=== PATIENT | female | born 1935 | race Caucasian/White ===

== ENCOUNTER 2016-04-26 18:26 | Inpatient (IN) | payer MEDICARE, OTHER ==
[~2016-04-26] VITALS: Ht 172.7 cm; Wt 106.1 kg
[~2016-04-26 18:26] MED LIST: ARICEPT10 MG PO; ELIQUIS5 MG PO; HUMULIN R100 U/ML SC; LANTUS INSULIN10 ML SC; LEVOTHYROXINE125 MCG PO; LEXAPRO10 MG PO; LOTREL 10/20 CA1 CAP PO; MULTAQ400 MG PO; PRILOSEC20 MG PO; PROAIR HFA8.5 GM INH; RESTORIL15 MG PO; SEROQUEL25 MG PO; VITAMIN B-121000 MCG PO; VITAMIN D5000 UNIT PO
[2016-04-26 19:54] LABS: BASOPHILS 0.2 % (0.0-2.0); EOSINOPHILS 4.5 % (0-7); HEMATOCRIT 38.2 % (36.0-48.0); HEMOGLOBIN 11.7 g/dL (12-16); IMMATURE GRANULOCYTES 0.2 % (0-5); LYMPHOCYTES 26.7 % (15-50); MCH 21.1 pg (26.0-34.0); MCHC 30.6 g/dL (31.0-37.0); MCV 68.8 fL (80.0-100.0); MONOCYTES 10.5 % (2-11); NEUTROPHILS 57.9 % (40-80); PLATELET COUNT 270 10x3/uL (130-400); RBC 5.55 10x6/uL (4.00-5.40); WBC 8.2 10x3/uL (4.8-10.8)
[2016-04-26 20:07] LABS: ALBUMIN 3.5 g/dL (3.4-5.0); ANION GAP 11.5 mmol/L (8-16); BILIRUBIN - TOTAL 0.55 mg/dL (0.2-1.3); CALCIUM 9.5 mg/dL (8.5-10.1); CARBON DIOXIDE 28.3 mmol/L (21.0-32.0); CREATININE - SERUM 1.2 mg/dL (0.6-1.3); POTASSIUM - SERUM 4.8 mmol/L (3.5-5.1); PROTEIN - SERUM 7.2 g/dL (6.4-8.2)
[2016-04-26 20:17] LABS: APPEARANCE HAZY (CLEAR); BILIRUBIN NEGATIVE (NEGATIVE); COLOR YELLOW (YELLOW); GLUCOSE NEGATIVE (NEGATIVE); KETONE NEGATIVE (NEGATIVE); LEUKOCYTE ESTERASE NEGATIVE (NEGATIVE); NITRITE NEGATIVE (NEGATIVE); PROTEIN NEGATIVE (NEGATIVE); UROBILINOGEN NORMAL (NORMAL)
[2016-04-26 20:18] LABS: BACTERIA FEW /hpf (NONE SEEN); RED CELLS - URINE NONE SEEN /hpf (0-5); WHITE CELLS - URINE NSEEN /hpf (0-5)
--- NOTE | 2016-04-27 01:45 | NUR ---
RECEIVED PT TO FLOOR FROM ER VIA STRETCHER. PT DENIES PAIN AT THIS TIME. PT ATE SOME PEANUT BUTTER AND CRACKERS. C/O PAIN AFTER AN HOUR ON FLOOR RATING OF 8/10 ON PAIN SCALE. GAVE MORPHINE 4MG IV PUSH. NO OTHER NEEDS. HOME MEDS AND HISTORY REVIEWED. DAUGHTER WENT HOME AND WILL BE BACK EARLY THIS AM. WILL CONTINUE TO MONITOR.
[2016-04-27] MEDS ORDERED: ZANTAC150 MG PO (01:48)
[2016-04-27] MEDS ORDERED: MACROBID100 MG PO (01:48)
[2016-04-27] MEDS ORDERED: ZOLOFT25 MG PO (01:49)
[2016-04-27] MEDS ORDERED: ATIVAN1 MG PO (01:53)
[2016-04-27] MEDS ORDERED: LEVOTHYROXINE175 MCG PO (01:54)
--- NOTE | 2016-04-27 02:00 | NUR ---
RESTING WITH EYES CLOSED, RESP WITH EASE, NO DISTRESS NOTED, FALL PRECAUTIONS IN PLACE, CL IN REACH
[2016-04-27] MEDS ORDERED: MELATONIN 10 M1 EACH PO (02:01)
[2016-04-27] MEDS ORDERED: NITROSTAT0.4 MG SL (02:02)
[2016-04-27 03:18] VITALS: BP 132/56; BMI 35.6
[2016-04-27 04:00] VITALS: BP 133/61
--- NOTE | 2016-04-27 07:29 | NUR ---
PT RESTING IN BED, DAUGHTER AT BEDSIDE. ALERT AND ORIENTED, BED LOWEST POSITION, CALL LIGHT IN REACH, WILL CONTINUE PLAN OF CARE
[2016-04-27 08:43] VITALS: BP 145/66
--- NOTE | 2016-04-27 09:40 | NUR ---
PT SEEN FOR RADAR TESTER NOTE. STATES NO RELIEF IF ANY FROM PAIN PILL GIVEN THIS AM. INSTRUCTED BOTH PATIENT AND DAUGHTER THAT CANNOT FOLLOW WITH IV PAIN MED FOR ANOTHER HOUR AT LEAST-PAIN PILL ON BOARD FOR APPROX. 45 MIN. CONSENT SIGNED FOR CORSET BRACE TO BE DELIVERED. INSTRUCTED PATIENT AND DAUGHTER THAT CONSULT IN FOR THERAPY WITH BRACE ON. BOTH VOICED UNDERSTANDING OF NEED TO WEAR BRACE FOR SUPPORT OF FRACTURE. LYING ON RIGHT SIDE. CALL LIGHT IN REACH
--- NOTE | 2016-04-27 11:37 | NUR ---
PT SLEEPING EASILY AROUSED, DAUGHTER AT BEDSIDE, BED LOWEST POSITION, CALL LIGHT IN REACH, WILL CONTINUE TO MONITOR
--- NOTE | 2016-04-27 12:21 | NUR ---
PT RESTING IN BED, NO COMPLAINTS AT THIS TIME, BED LOWEST POSITION, CALL LIGHT IN REACH, SIDE RAILS UP X2, WILL CONTINUE TO MONITOR
[2016-04-27 12:52] VITALS: Ht 172.7 cm; Wt 106.1 kg
[2016-04-27 12:54] VITALS: BP 123/60
--- NOTE | 2016-04-27 13:20 | NUR ---
PT COMPLAINS OF NAUSEA, ZOFRAN GIVEN PER MAR, WILL CONTINUE TO MONITOR
[2016-04-27 16:53] VITALS: BP 127/61
--- NOTE | 2016-04-27 19:34 | NUR ---
PT NOTED LYING IN BED SHAKING FROM A PAIN LEVEL OF 9 IN HER BACK AND RIBS. NUMEROUS PILLOWS USED TO TRY TO REPOSITION PT WITHOUT SUCCESS. DR GOVEA PAGED AT THIS TIME ABOUT POSSIBLE INCREASING PAIN MEDICATION.
--- NOTE | 2016-04-27 19:44 | NUR ---
RECIEVED CALL BACK FROM DR HERMAN. [facility] ORDERED.
--- NOTE | 2016-04-27 19:45 | NUR ---
PT VOICED COMPLAINT OF BACK PAIN LEVEL OF 10, NOT RELIEVED WITH NORCO. SHE AND THE FAMILY REQUESTED THE DR BE CALLED FOR A STRONGER MEDICATION. DR GOVEA PAGED THROUGH HIS ANSERING SERVICE. DR HERMAN RETURNED CALL AND NEW ORDER NOTED. PT MEDICATED DIRECTED.
--- NOTE | 2016-04-27 20:50 | NUR ---
PT STATES HER PAIN IS GONE FOR NOW, AND SHE FEELS MUCH BETTER. IV NOTED TO LEFT AC IS VERY POSITIONAL. PILLOW USED FOR POSITIONING TO KEEP ARM STRAIGHT.
[2016-04-27 21:00] VITALS: BP 101/39
--- NOTE | 2016-04-27 22:26 | NUR ---
PT IS RESTING QUIETLY IN BED WITH EYES CLOSED. RESPS ARE EVEN AND UNLABORED. NO ACUTE DISTRESS NOTED.
--- NOTE | 2016-04-27 23:59 | NUR ---
PT IS RESTING ON BED WITH EYES CLOSED.
[2016-04-28 02:15] VITALS: BP 131/53
--- NOTE | 2016-04-28 02:36 | NUR ---
PT RESTING IN BED WITH EYES CLOSED. NO DISTRESS NOTED.
[2016-04-28 04:00] VITALS: BP 141/54
--- NOTE | 2016-04-28 04:39 | NUR ---
PT IS RESTING QUIETLY IN BED WITH EYES CLOSED. NO ACUTE DISTRESS NOTED.
--- NOTE | 2016-04-28 07:10 | NUR ---
PATIENT IN BED WITH EYES CLOSED RESTING QUIETLY AT THIS TIME. NO SIGNS OF DISTRESS. CALL LIGHT WITHIN REACH.
--- NOTE | 2016-04-28 07:30 | NUR ---
PT RESTING IN BED ON RIGHT SIDE, NO COMPLAINTS AT THIS TIME, BED LOWEST POSITION, SIDE RAILS UP X2, CALL LIGHT IN REACH, ASSESSMENT COMPLETE, WILL CONTINUE TO MONITOR
[2016-04-28 08:46] VITALS: BP 128/42
[2016-04-28 11:53] VITALS: BP 136/61
[2016-04-28 16:25] VITALS: BP 106/40
[2016-04-28 20:00] VITALS: BP 156/59
[2016-04-29] VITALS: BP 154/73
--- NOTE | 2016-04-29 02:36 | NUR ---
RESTING WITH EYES CLOSED, NO DISTRESS NOTED, FALL PRECAUTIONS IN PLACE, CL IN REACH
[2016-04-29 06:26] LABS: ANION GAP 13.2 mmol/L (8-16); CALCIUM 9.1 mg/dL (8.5-10.1); CARBON DIOXIDE 24.1 mmol/L (21.0-32.0); CREATININE - SERUM 1.2 mg/dL (0.6-1.3); POTASSIUM - SERUM 4.3 mmol/L (3.5-5.1)
--- NOTE | 2016-04-29 07:25 | NUR ---
PT RESTING IN BED ON RIGHT SIDE, CAN EXPRESS NEEDS OR CONCERNS, ASSESSMENT COMPLETE, NO CURRENT NEEDS, CALL LIGHT IN REACH, WILL CONTINUE TO MONITOR
[2016-04-29 08:55] VITALS: BP 132/48
--- NOTE | 2016-04-29 09:00 | NUR ---
SCOPOLAMINE PATCH PLACED BEHIND LEFT EAR
--- NOTE | 2016-04-29 13:31 | NUR ---
PT UP SITTING IN CHAIR, SOME COMPLAINTS OF NAUSEA, CORSET BRACE ON, CALL LIGHT IN REACH, WILL CONTINUE TO MONITOR,
--- NOTE | 2016-04-29 14:41 | NUR ---
PT LYING IN BED RESTING, NO CURRENT COMPLAINTS, BED LOWEST POSITION, CALL LIGHT IN REACH, WILL CONTINUE TO MONITOR
--- NOTE | 2016-04-29 15:40 | NUR ---
LAYING QUIETLY ON RT SIDE DENIES ANY NEEDS AT PRESENT RESP EVEN AND UNLABORED AT PRESENT.
[2016-04-29 16:45] VITALS: BP 111/34
[2016-04-29 19:00] VITALS: BP 130/59
--- NOTE | 2016-04-29 19:19 | NUR ---
DR ALONZO ROUNDS. PATIENT REPORTS THAT NAUSEA IS IMPROVING, BUT STILL A PROBLEM AT TIMES. DR ALONZO TO ORDER SCOPALAMINE PATCH.
--- NOTE | 2016-04-29 19:59 | NUR ---
IN BED AWAKE AND ALERT. NO DISTRESS NOTED. CAN EXPRESS NEEDS AND WANTS. DENIES ANY PAIN OR DISCOMFORT AT THIS TIME. ASSESSMENT COMPLETED. C/L IN REACH AT BEDSIDE.
--- NOTE | 2016-04-30 02:00 | NUR ---
PT IN BED WITH NO DISTRESS. RESPIRATIONS EVEN AND UNLABORED. RIGHT AC IV WITH FLUIDS RUNNING PER ORDER. SIDE RAILS X 2. BED LOW. CALL LIGHT IN REACH.
[2016-04-30 04:00] VITALS: BP 132/43
--- NOTE | 2016-04-30 05:42 | HP ---
PATIENT: MELISSA COCHRAN MEDICAL RECORD: [id number] ACCOUNT: [id number] LOCATION:[id number] : 34 ADMISSION DATE: 04/26/16 HISTORY AND PHYSICAL EXAMINATION REASON FOR ADMISSION: Back pain or dyspepsia. HISTORY OF PRESENT ILLNESS: The patient is an 81-year-old female with history of Alzheimer dementia with behavior disturbances. She had fallen approximately a week ago, had some vague low back pain. She had been to my office and while later complaining more of belching and abdominal discomfort. Plain films were done at that time did not show acute abnormality. She did not have postprandial dyspepsia, was seen back in the office earlier this week and my concern was possible cholelithiasis. She was scheduled for an ultrasound of her gallbladder. Her pain became much worse last night and could not get out of bed and the daughter called 911, she was brought to the Emergency Room. Repeat CT of the abdomen and pelvis at that time did confirm the gallstones that also showed a small L1 compression fracture. She has now been admitted for the above symptomatology. She denies any sciatica currently. Definitely has postprandial fatty food intolerance. PAST MEDICAL HISTORY: 1. Essential hypertension. 2. Alzheimer dementia with behavior disorder. 3. Hypothyroidism. 4. Type 2 diabetes mellitus. 5. History of CAD, refusing surgery in the past. 6. Macular degeneration, bilateral eyes, right greater than left. 7. Degenerative joint disease. 8. Chronic renal insufficiency. 9. Recurrent UTIs. 10. Old lacunar infarction left basal ganglia and cerebral atrophy. 11. Atrial fibrillation. PAST SURGICAL HISTORY: Had fibrocystic tumor removed from her breast in 1958, partial thyroidectomy 1980 for benign reasons, and hysterectomy in 1984. FAMILY HISTORY: Father of stroke, cancer, arthritis. Mother of Hodgkin's disease. One sister with Alzheimer dementia who is . ALLERGIES: COUMADIN, CYMBALTA, LEXAPRO. SOCIAL HISTORY: She lives in assisted living. Her daughter cares for her attentively. Nonsmoker, nondrinker. She is . MEDICATIONS: Ranitidine 150 mg p.o. at h.s., Macrobid 100 mg p.o. b.i.d. for 5 days, Lotrel 10/20 one p.o. daily, Multaq 400 mg p.o. b.i.d., Lantus Solostar 50 units subQ in the evening, benazepril 10 mg daily, levothyroxine 0.175 mg daily, Eliquis 5 mg b.i.d. REVIEW OF SYSTEMS: GENERAL: No weight loss. HEENT: No recent new visual change, sinus congestion, or sore throat. RESPIRATORY: Severe cough. CARDIAC: No exertional chest pain, claudication or edema. HISTORY AND PHYSICAL [id number] MELISSA COCHRAN GASTROINTESTINAL: She has had an intermittent nausea with recurrent irritation. Chronic constipation. ENDOCRINE: Denies polyuria, polydipsia, heat or cold intolerance. MUSCULOSKELETAL: Chronic lumbago worst now, ____ in the mid lumbar spine with sitting up or standing. She has very unsteady gait and has arthralgias in both knees. Walks with a cane when she does. NEUROLOGIC: Remote history of lacunar stroke. Past history of seizures or headaches. Admits to have trouble with memory loss. PHYSICAL EXAMINATION: VITAL SIGNS: Temperature 98.6, pulse 62, respirations 13, blood pressure 127/92 with a sat 97% on room air. Her height is 5 feet 8 inches, weight of 234 pounds. HEENT: Normocephalic. Eyes are clear with pinpoint pupils. Sclerae nonicteric. Oropharynx unremarkable. NECK: Supple, without bruits or masses. CHEST: Clear without wheeze or rales. HEART: Regular rate without MGR. PMI appropriate. ABDOMEN: Mildly obese, soft, nontender throughout. No organomegaly is appreciated. BACK: Shows limited lumbar flexion, negative SLR bilaterally. Adequate strength in both lower and upper extremities. INTEGUMENTARY: No rash or pruritus or petechiae. NEUROLOGIC: Oriented to person, but not to place and time. Her affect is appropriate. Mood is not labile. LABORATORY WORKUP: White count is 8000, H&H 11.7 and 38.2 respectively. Chemistry shows creatinine of 1.2, BUN of 14. Electrolytes normal. Glucose is 100. Liver functions are normal. Urinalysis shows 5-10 epithelial cells, negative leukocyte esterase. CT of the head showed no acute intracranial abnormality, chronic small vessel changes. Mild cerebral atrophy. CT abdomen and pelvis shows small left pleural effusion, sigmoid diverticulitis, multiple gallstones were present in the gallbladder lumen, mild compression deformity of L1. ASSESSMENT: 1. L1 compression fracture with increasing back pain. 2. Symptomatic cholelithiasis. 3. Diabetes mellitus. 4. Alzheimer dementia. 5. Hypertension. 6. History of coronary artery disease. PLAN: The patient is admitted for pain control and neurosurgical consultation and general surgery consultation. Further workup to follow. TRANSINT:[id number] Voice Confirmation ID: [id number] DOCUMENT ID: [id number] HISTORY AND PHYSICAL [id number] MELISSA COCHRAN TIMOTHY MD at 0542 CC: [id number] DICTATION DATE: 04/27/16 1507 MAILROOM SUPERVISOR: 04/27/16 1631 ADM IN [facility] [address] [id number]
[2016-04-30 07:59] VITALS: BP 121/47
--- NOTE | 2016-04-30 10:41 | NUR ---
Patient Name: MELISSA COHCRAN Admission Status: ER Accout number: [id number] Admission Date: 04-26-2016 : 1934 Admission Diagnosis: Attending: SHRUTHI Current LOS: 4 Anticipated DC Date: 05-02-2016 Planned Disposition: Inpatient Rehab Primary Insurance: MEDICARE A & B Discharge Planning Comments: CM MET WITH PATIENT AND DAUGHTER (SRUTHI) REGARDING D/C NEEDS AND PLANS. PATIENTS DAUGHTER STATED SHE LIVES IN A INDEPENDENT HOME ([facility]) AND SHE WILL DRIVE HER HOME AT DISCHARGE. PATIENT IS INDEPENDENT WITH HER CARE AND HAS A CANE, WHEELCHAIR, AND GLUCOMETER. PATIENTS PCP IS DR. GOVEA AND USES [facility] ON [address]. PATIENT HAS AN IP REHAB REFERRAL AND DAUGHTER STATED IF SHE DOES NOT GO THERE SHE WANTS PATIENT TO GO TO A SNF. CM WILL CONTINUE TO FOLLOW PATIENT WITH D/C NEEDS AND PLANS. PCP DR. ENGLISH [facility] ON [address] [phone] SRUTHI (DAUGHTER) C [phone] Patient Care Representative: Fanta Crocker Is the patient Alert and Oriented? Yes 0 * How many steps to enter\exit or inside your home? 0 0 * PCP DR. GOVEA 0 * Pharmacy [facility] [address] 0 * Preadmission Environment Other 0 * Other Environment INDEPENDENT HOME 0 * Facility Name [facility] 0 * ADLs Independent 0 * Equipment Cane Glucometer Wheelchair 0 * List name and contact numbers for known caregivers / representatives who currently or will assist patient after discharge: SRUTHI MCCRARY (DAUGHTER) [phone] * Community resources currently utilized None 0 * Additional services required to return to the preadmission environment? Yes 0 * Can the patient safely return to the preadmission environment? Yes 0 * Has this patient been hospitalized within the prior 30 days at any hospital? No 0 Grand Total: 0
--- NOTE | 2016-04-30 11:18 | NUR ---
VASCULAT ACCESS NURSE IN ROOM WITH PT ATTEMPTING TO START A NEW IV. IV TO LEFT AC D/C WITH CATH TIP INTACT. RJ CORSET BRACE APPLIED AND NEW ORDERS GIVEN FROM DR GOVEA FOR MUSCLE RELAXER. PT AND DAUGHTER VERBALIZED UNDERSTANDING.
--- NOTE | 2016-04-30 12:15 | NUR ---
Rehab Note- Rehab Prescreen Order received. The patient is sitting at bedside with Physical theapy, appears to be a good IRF candidate when able to tolerate therapy. Will follow at his time. Thank you for this refferal! Mya Smallwood RN Clinical Liaison, Fanny
[2016-04-30 12:45] VITALS: BP 144/58
--- NOTE | 2016-04-30 13:50 | NUR ---
22G IV SITED TO PT'S RIGHT FOREARM X1 ATTEMPT. PT TOLERATED WITH MODERATE C/O PAIN. DENIES FURTHER NEEDS AT THIS TIME. FAMILY AT BEDSIDE AND PT REMAINS NPO. WILL CONTINUE WITH PLAN OF CARE.
--- NOTE | 2016-04-30 15:10 | NUR ---
INCONTINENCE CARE PROVIDED AT THIS TIME AND PT TAKEN TO NUCLEAR MED FOR PIPIDA SCAN. WILL MONITOR PT WHEN SHE RETURNS TO THE ROOM.
[2016-04-30 19:00] VITALS: BP 118/41
--- NOTE | 2016-04-30 20:08 | NUR ---
RECIEVED PT RESTING WITH EYES CLOSED, RESP WITH EASE, ASSESSMENT COMPLETED, NO ACUTE DISTRESS NOTED, IV INFUSING, SCD'S IN PLACE, SR'S UP , CL IN REACH, WILL MONITOR
[2016-05-01 01:00] VITALS: BP 157/59
--- NOTE | 2016-05-01 01:34 | NUR ---
PRN IV ZOFRAN GIVEN FOR NAUSEA WITH EMESIS ALONG WITH SCHEDULED IV FLUIDS, PADMINI WELL, FALL PRECAUTIONS IN PLACE, CL IN REACH
--- NOTE | 2016-05-01 02:39 | NUR ---
PRN PAIN MEDS GIVEN PER MAR PER REQUEST, NO ACUTE DISTRESS NOTED, SAFETY MEASURES IN PLACE, CL IN REACH
[2016-05-01 04:00] VITALS: BP 143/64
[2016-05-01 05:41] LABS: BASOPHILS 0.3 % (0.0-2.0); EOSINOPHILS 3.1 % (0-7); HEMATOCRIT 33.4 % (36.0-48.0); IMMATURE GRANULOCYTES 0.4 % (0-5); LYMPHOCYTES 8.6 % (15-50); MCH 21.2 pg (26.0-34.0); MCHC 29.9 g/dL (31.0-37.0); MCV 70.9 fL (80.0-100.0); MEAN PLATELET VOLUME 10.5 fL (7.4-10.4); MONOCYTES 7.7 % (2-11); NEUTROPHILS 79.9 % (40-80); PLATELET COUNT 240 10x3/uL (130-400); RBC 4.71 10x6/uL (4.00-5.40); RDW 21.8 % (11.5-14.5); WBC 10.3 10x3/uL (4.8-10.8)
[2016-05-01 06:21] LABS: ANION GAP 12.6 mmol/L (8-16); BILIRUBIN - DIRECT 0.12 mg/dL (0.00-0.30); BILIRUBIN - INDIRECT 0.41 mg/dL (0.00-1.00); BILIRUBIN - TOTAL 0.53 mg/dL (0.2-1.3); CALCIUM 8.7 mg/dL (8.5-10.1); CARBON DIOXIDE 26.2 mmol/L (21.0-32.0); POTASSIUM - SERUM 4.8 mmol/L (3.5-5.1); PROTEIN - SERUM 6.6 g/dL (6.4-8.2)
--- NOTE | 2016-05-01 07:55 | NUR ---
PT DRY HEAVING AND NAUSEOUS AT THIS TIME. ADMINISTERED PRN PHENERGAN AND NORCO PER ORDER. DR GOVEA VISITING WITH FAMILY. ASSESSMENT PERFORMED PER FLOWSHEET. CALL LIGHT IN REACH, WILL CONTINUE WITH PLAN OF CARE. DAUGHTER AT BEDSIDE. BED IN LOWEST POSITION WITH WHEELS LOCKED AND SRX2. BED ALARM ON. WILL CONTINUE WITH PLAN OF CARE.
[2016-05-01 08:13] VITALS: BP 110/74
--- NOTE | 2016-05-01 11:30 | NUR ---
SCHEDULED MEDICATIONS ADMINISTERED AT THIS TIME WITH A SIP OF WATER. TOLERATED WITHOUT NAUSEA OR VOMITING. DAUGHTER REMAINS AT BEDSIDE. IN BED WITH BED ALARM ON AND SCD'S OFF PER PT. CALL LIGHT IN REACH, WILL CONTINUE WITH PLAN OF CARE.
--- NOTE | 2016-05-01 11:30 | NUR ---
GAVE REPORT TO CHRIS ABDUL.
[2016-05-01 11:32] VITALS: BP 111/63
--- NOTE | 2016-05-01 12:15 | NUR ---
PT NPO AT THIS TIME FOR ULTRASOUND OF THE GALLBLADDER. WILL REMAIN NPO UNTIL TEST IS COMPLETE.
--- NOTE | 2016-05-01 13:14 | NUR ---
NUTRITION MONITORING & EVAL CHART REVIEWED, CURRENTLY NPO FOR TESTING. WILL PROVIDE DIET WHEN RESUMED, HONOR FOOD PREFERENCES. RD FOLLOWING
--- NOTE | 2016-05-01 14:18 | NUR ---
Rehab Note- Spoke with COLLEEN Jewell and the patietn has a surgical consult pending at this time. Will continue to follow the patient at this time. Thank you again for this referral! Mya Smallwood RN Clinical Liaison, Fanny
[2016-05-01 14:58] VITALS: BP 148/76
--- NOTE | 2016-05-01 15:48 | NUR ---
PRN NORCO AND PHENERGAN ADMINISTERED AT THIS TIME PER ORDER FOR C/O PAIN AND NAUSEA AT THIS TIME. DENIES FURTHER NEEDS. UNABLE TO START GOLYTELY AT THIS TIME D/T NAUSEA. WILL TRY AGAIN IN A LITTLE BIT ONCE MEDICATIONS HAVE HAD A CHANCE TO KICK IN.
--- NOTE | 2016-05-01 18:39 | NUR ---
SCHEDULED MEDICATIONS ADMINISTERED AT THIS TIME. FAMILY AT BEDSIDE. PT DENIES NAUSEA OR PAIN AT THIS TIME. CALL LIGHT IN REACH, WILL CONTINUE WITH PLAN OF CARE.
[2016-05-01 19:00] VITALS: BP 141/72
[2016-05-02] VITALS: BP 134/61
--- NOTE | 2016-05-02 01:41 | NUR ---
CHECKING VS FLIGHT COMMUNICATIONS OPERATOR REPORTS O2 SAT=74-76% ON ROOM AIR. PT SOUNDS CONGESTED. HAS A RUNNY NOISE. PLACED ON OXYGEN. STARTED OUT 2L/M PER NC O2 SATS STAYING AT 80-81%.INCREASED TO 3L/M PER NC. OBSERVED PATIENT ENCOURAGED PT TO CAOUGH AND DEEP BREATHE. INCREASED OXY TO 4L/M PER NC. OBSERVED PT. SATS RUNNING 86-88%. INCREASED OXYGEN TO 5L/M PER NC O2 SATS=90-91% WILL CONTINUE TO OBSERVE.
--- NOTE | 2016-05-02 01:50 | NUR ---
PLACED ON A CONTINUOUS PULSE OX MACHINE WILL CONTINUE TO OBSERVE.
--- NOTE | 2016-05-02 02:44 | NUR ---
CHECKED PT'S O2 SAT=94% ON 5L/M PER NC.
[2016-05-02 04:00] VITALS: BP 130/53
--- NOTE | 2016-05-02 04:47 | NUR ---
EYES CLOSED RESPIRATIONS WITH EASE AND UNLABORED. O2 SATS RUNNING 93-94% ON 5 L/M OXYGEN PER NC.
--- NOTE | 2016-05-02 06:26 | NUR ---
FSBS=89. NO COVERAGE NEEDED.
--- NOTE | 2016-05-02 07:40 | NUR ---
PATIENT RECEIVED ALERT IN [place] POSITION. RESPIRATIONS EVEN AND UNLABORED. SIDE RAILS UP X2. BED IN LOW POSITION. CALL LIGHT IN REACH. FAMILY PRESENT. DENIES NEEDS.
--- NOTE | 2016-05-02 08:12 | NUR ---
PATIENT ALERT IN BED. NO SIGNS OF DISTRESS NOTED. IVF D/C PER ORDER. SCHEDULED MEDICATION ADMINISTERED. DENIES NEEDS. SIDE RAILS UP X2. BED IN LOW POSITION. CALL LIGHT IN REACH. FAMILY PRESENT.
[2016-05-02 08:30] VITALS: BP 148/78
[2016-05-02 12:18] VITALS: BP 131/59
--- NOTE | 2016-05-02 12:30 | NUR ---
ALERT IN BED WITH FAMILY AT BEDSIDE. NO SIGNS OF DISTRESS NOTED. SIDE RAILS UP X2. BED IN LOW POSITION. CALL LIGHT IN REACH.
--- NOTE | 2016-05-02 15:00 | NUR ---
PATIENT IN MID [place] POSITION RESTING WITH EYES CLOSED. RESPIRATIONS EVEN AND UNLABORED. SIDE RAILS UP X2. BED IN LOW POSITION. CALL LIGHT IN REACH. FAMILY PRESENT.
[2016-05-02 16:43] VITALS: BP 125/59
--- NOTE | 2016-05-02 18:15 | NUR ---
PATIENT INCONTINENT OF BM. LINEN CHANGE COMPLETE. NO REDNESS OR BREAKDOWN NOTED. REPOSITIONED FOR COMFORT. WELL TOLERATED. SIDE RAILS UP X2. BED IN LOW POSITION. CALL LIGHT IN REACH.
[2016-05-02 20:00] VITALS: BP 131/53
--- NOTE | 2016-05-02 21:45 | NUR ---
AROUSES TO VERBAL STIMULI. NO DISTRESS NOTED. O2 AT 3 L PER NC ON. IV INFUSING TO RIGHT FOREARM WITHOUT REDNESS OR EDEMA. CL IN REACH. DAUGHTER AT BEDSIDE.
[2016-05-03] VITALS: BP 106/50
--- NOTE | 2016-05-03 01:51 | NUR ---
RESTING QUIETLY. NO DISTRESS NOTED. CL IN REACH
--- NOTE | 2016-05-03 03:13 | NUR ---
RN NOTE: PT BEING CHANGED AT THIS TIME BY 2 FINISHING AREA OPERATOR'S. O2 IN USE AT 3L AND SPO2 97% AT THIS CHECK. WILL CONTINUE TO MONITOR FOR NEEDS.
[2016-05-03 04:00] VITALS: BP 129/59
--- NOTE | 2016-05-03 06:04 | NUR ---
AROUSES EASILY TO VERBAL STIMULI. NO COMPLAINTS VOICED. NO DISTRESS NOTED. CL IN REACH.
[2016-05-03 06:24] LABS: ANION GAP 12.1 mmol/L (8-16); CALCIUM 8.9 mg/dL (8.5-10.1); CARBON DIOXIDE 27.1 mmol/L (21.0-32.0); CREATININE - SERUM 1.3 mg/dL (0.6-1.3); POTASSIUM - SERUM 4.2 mmol/L (3.5-5.1)
--- NOTE | 2016-05-03 07:47 | NUR ---
CALL PLACED TO DR GOVEA REGARDING DAUGHTER POA ASKING FOR DNR STATUS. COPY OF LIVING WILL AND POA PLACED ON CHART
[2016-05-03 08:30] VITALS: BP 132/39
--- NOTE | 2016-05-03 09:51 | NUR ---
CM REASSESSMENT NOTE: DR. GOVEA CONSULTED [facility] AT DISCHARGE. FAMILY IN ROOM.
--- NOTE | 2016-05-03 12:22 | NUR ---
CM REASSESSMENT NOTE: PATIENT WILL BE DISCHARGING HOME TODAY WITH [facility]. PATIENT WILL GO BY AMBULANCE. DAUGHTER (SRUTHI) AT BEDSIDE AND WILL BE LEAVING FOR EQUIPMENT TO BE DELIVERED TO HER HOME.
[2016-05-03 12:28] VITALS: BP 102/54
--- NOTE | 2016-05-03 12:50 | NUR ---
PATIENT SITTING UP IN THE CHAIR. DAUGHTER AT BEDSIDE. CALL LIGHT IN REACH. PATIENT IS RECIEVING OXYGEN VIA NASAL CANNULA AT 2L/MIN.
[2016-05-03] MEDS ORDERED: SOMA350 MG PO (13:02)
[2016-05-03] MEDS ORDERED: IPRAT-ALBUT 0.5-3 ML INH (13:02)
--- NOTE | 2016-05-03 14:29 | NUR ---
CM REASSESSMENT NOTE: PATIENTS DAUGHTER (SRUTHI) IS COMING TO DRIVE PATIENT HOME. HOSPICE HAS DELIVERED HER WHEELCHAIR TO THE HOME FOR WHEN SHE ARRIVES.
[2016-05-03 16:10] VITALS: BP 119/54
--- NOTE | 2016-05-03 16:36 | NUR ---
D/C IV WITH CATH INTACT. DISCHARGE INSTRUCTIONS COMPLETED WITH PATIENT AND DAUGHTER. BOTH VERBALIZED UNDERSTANDING AND DENY QUESTIONS. ASSISTED PATIENT INTO WHEELCHAIR AND INTO CAR WITH ASSIST FROM AGRICULTURAL LABOR CAMP MANAGER. PATIENT WEARING OXYGEN VIA NASAL CANNULA AT 2L/MIN.
--- NOTE | 2016-05-04 10:40 | CN ---
PATIENT NAME:MELISSA COCHRAN MEDICAL RECORD: [id number] : 34 LOCATION:[id number] ADMIT DATE: 04/26/16 ACCOUNT: [id number] CONSULTING PHYSICIAN: MARÍA MORAN MD REFERRING PHYSICIAN: FOZIA GOVEA MD DATE OF CONSULTATION: 05/01/2016 HISTORY OF PRESENT ILLNESS: An 81-year-old lady with cardiovascular history. She has a history of atrial fibrillation, on Eliquis for CVA prophylaxis, has history of hypertension, has a history of coronary artery disease diagnosed via a nuclear stress testing noninvasively, is being evaluated for a laparoscopic cholecystectomy as stated preoperatively. Historically although, she has had history of dementia. She reports no anginal type symptomatology. No symptoms of volume overload, dyspnea, orthopnea, PND. We are asked to see her concerning her cardiovascular status. PAST MEDICAL HISTORY: Includes: 1. History of dementia. 2. Coronary artery disease diagnosed noninvasively. 3. Atrial fibrillation. 4. Hypertension. 5. Osteoarthritis. HOME MEDICATIONS: Typically include: 1. Ativan 1 mg p.o. b.i.d. 2. Zoloft 25 q. day. 3. Multaq 400 b.i.d. 4. Amlodipine and benazepril combination 10/20 q. day. 5. Eliquis 5 b.i.d. 6. Aricept 10 q. day. ALLERGIES: CYMBALTA, LEXAPRO, COUMADIN. SOCIAL HISTORY: Lives here in [place], retired, she is nonsmoker, does not have trouble with her ADLs. REVIEW OF SYSTEMS: The patient reports easy bruising but reports no swollen glands. The patient reports no fever, no night sweats, no significant weight gain, no significant weight loss. No significant exercise tolerance. The patient reports no dry eyes, no irritation, no vision change. Patient reports no difficulty hearing and no ear pain. Patient reports no frequent nose bleeds or nose and sinus problems. Patient reports on arm pain on exertion. No shortness of breath while lying down. No history of heart murmur. Patient reports no cough, no wheezing or coughing up blood. Patient reports no abdominal pain, no vomiting. Normal appetite. No diarrhea and not vomiting blood. No nausea and no constipation. Patient reports no incontinence. No difficulty urinating. No hematuria. No increased frequency. Patient reports no muscle aches. No weakness, no arthralgias, no back pain. No swelling of the extremities. Patient reports no abnormal mole, no jaundice, no rashes. Reports no loss of consciousness. No weakness and no numbness. No seizures, dizziness, or headaches. The patient reports no depression, no sleep disturbance, feeling safe in a relationship and no alcohol abuse. Patient reports on fatigue. Reports no runny nose or sinus pressure. No itching, no hives, and no frequent sneezing. CONSULT REPORT [id number] MELISSA COCHRAN PHYSICAL EXAMINATION: GENERAL: Pleasant female in no acute distress. VITAL SIGNS: Pulse 88 and irregular. Blood pressure 111/63. HEENT: Normocephalic, atraumatic. NECK: No JVD or bruit. HEART: Irregular with I-II/ systolic ejection murmur. LUNGS: Good air excursion. ABDOMEN: Soft, nontender. EXTREMITIES: Pulses 2+. No edema. IMPRESSION: Atrial fibrillation, coronary artery disease with preserved LV systolic function, historically asymptomatic from a cardiovascular standpoint. No contraindication to planned procedure if n.p.o., could use IV diltiazem, beta-danilo, etc. for rate control if atrial fibrillation becomes more of an issue. Further recommendations based on clinical course. TRANSINT:[id number] Voice Confirmation ID: [id number] DOCUMENT ID: [id number] MARÍA MORAN MD at 1040 CC: [id number] DICTATION DATE: 05/01/16 1330 WARP SCOURING VAT TENDER: 05/01/16 2142 DIS IN 05/03/16 [address] [id number] [address] [id number]
--- NOTE | 2016-05-10 07:05 | DS ---
PATIENT:MELISSA COCHRAN :33 MEDICAL RECORD: [id number] DISCHARGE SUMMARY ADMISSION DATE: 04/26/16 DISCHARGE DATE: 05/03/16 DISCHARGE DIAGNOSES: 1. Lumbar compression fracture. 2. Lumbago. 3. Cholelithiasis. 4. Dementia. 5. Depression. 6. Paroxysmal atrial fibrillation. 7. Urinary tract infection. 8. Essential hypertension. 9. Hypothyroidism. HOSPITAL COURSE: An 81-year-old female with history of Alzheimer dementia and behavioral disturbances, had fallen a week prior to admission, back pain became worse. She presented with increasing belching and abdominal discomfort. Plain films at that time did not show acute abnormality. Her back pain became worse and presented to the ER where CT did show evidence of an L1 compression fracture. She was also noted to have cholelithiasis without ductal dilatation. She was admitted for pain control, seen in consultation by neurosurgery, Dr. John who recommended an [place] brace and progressive physical therapy to ambulate. The patient continued to have postprandial dyspepsia and nausea. A PIPIDA scan was ordered, but was nondiagnostic. Dr. Herrmann was consulted, but in light of the patient's high morbidity risk, the history of LAD if this is not operated and chronic atrial fibrillation on Eliquis, the daughter, Dr. Herrmann and myself decided against surgery. At this point, due to the patient's severe pain, poor quality of life and advanced Alzheimer dementia, her daughter made her DNR status after talking to family. She has now decided on home hospice and that will be accomplished today through [facility]. DISCHARGE MEDICATIONS: Soma 350 q. 8 for muscle spasm, DuoNeb updrafts q.6 hours p.r.n., Lotrel 10/20 one p.o. daily for hypertension, Aricept 10 mg at bedtime, Multaq 400 mg with evening meal, Eliquis 5 mg p.o. b.i.d., Lantus Solostar 40 units insulin subQ at bedtime, ranitidine 150 mg p.o. b.i.d., Macrobid 100 mg p.o. b.i.d. for 5 days and discontinue, Zoloft 25 mg daily, Ativan 1 mg q. 6 p.r.n. anxiety, levothyroxine 0.175 mcg p.o. 1 hour before breakfast, melatonin 10 mg at bedtime p.r.n. sleep and Nitrostat 0.4 sublingual p.r.n. chest pain. DIET: Soft, as tolerated. CODE STATUS: DNR status. ACTIVITY: As tolerated with home hospice. TRANSINT:[id number] Voice Confirmation ID: [id number] DOCUMENT ID: [id number] DISCHARGE SUMMARY REPORT [id number] MELISSA COCHRAN TIMOTHY MD at 0705 CC: [id number] DICTATION DATE: 05/03/16 1308 THERMODYNAMIC PHYSICIST: 05/04/16 1008 DIS IN 05/03/16 [address] [place] [address]
--- NOTE | 2016-06-01 09:40 | CN ---
PATIENT NAME:MELISSA COCHRAN MEDICAL RECORD: [id number] : 33 LOCATION:[facility] ADMIT DATE: 04/26/16 ACCOUNT: [id number] CONSULTING PHYSICIAN: JUAN JOSE ALONZO MD REFERRING PHYSICIAN: FOZAI GOVEA MD DATE OF CONSULTATION: 04/27/2016 Addendum The patient has gallstones. She has recently suffered an L1 compression fracture as well as some rib fractures. She has been nauseated. This may be related to her gallstones or it might not. She is not complaining of any abdominal pain. I am going to start her on a Zofran drip as well as a scopolamine patch. If she does have significant gallbladder issue, I would like to wait until she recovers from her current traumatic injuries before proceeding with cholecystectomy. Symptoms came on suddenly. They are described above. This is a consultation note addendum. For the typed portion of the consult note including the past medical and surgical history, allergies, current medications, and social history, please see the chart. REVIEW OF SYSTEMS: Positive for back pain. Positive for chest wall pain. Positive for nausea. Positive for malaise. Positive for generalized weakness. The review of systems is negative other than as is described above. PHYSICAL EXAMINATION: GENERAL: The patient does appear acutely ill. Also, appears chronically ill. VITAL SIGNS: Reviewed. HEAD: External ears appear normal. EYES: Extraocular movements are intact. NECK: Trachea is midline. CHEST: No intercostal retractions. PULMONARY: Nonlabored. No stridor. ABDOMEN: Nontender. EXTREMITIES: No peripheral cyanosis. INTEGUMENT: There is an intertriginous rash. BACK: Mild thoracic kyphosis is present. LYMPHATICS: No lymphangitic streaking of the exposed extremities. PSYCHIATRIC: Anxious affect. NEUROLOGIC: Answers some commands. IMPRESSION: Gallstones of uncertain etiology in a patient, who does have chronic nausea, currently. PLAN: As described above. I will follow along. TRANSINT:[id number] Voice Confirmation ID: [id number] DOCUMENT ID: [id number] CONSULT REPORT [id number] SAMMIEMELISSA ROBERT MD at 0940 CC: [id number] DICTATION DATE: 04/27/162004 HEART NURSE: 04/28/16 0026 DIS IN 05/03/16 [facility] [address] [place] [id number]
== END 2016-05-03 16:37 | disposition home health service (06) | DRG 445 ==
LOC: D.ER 18:26 → D.MS 23:53
PROVIDERS: Physician Assistant; ADMIT Family Medicine
DX: K80.20 Calculus of gallbladder without cholecystitis without obstruction (principal); S32.019A Unspecified fracture of first lumbar vertebra, initial encounter for closed fracture; F02.81 Dementia in other diseases classified elsewhere, unspecified severity, with behavioral disturbance; N39.0 Urinary tract infection, site not specified; W19.XXXA Unspecified fall, initial encounter; I48.2 Chronic atrial fibrillation; Z79.02 Long term (current) use of antithrombotics/antiplatelets; Z66 Do not resuscitate; E11.9 Type 2 diabetes mellitus without complications; Z79.4 Long term (current) use of insulin; M19.90 Unspecified osteoarthritis, unspecified site; H35.30 Unspecified macular degeneration; G30.9 Alzheimer's disease, unspecified; E03.9 Hypothyroidism, unspecified; I10 Essential (primary) hypertension; I25.10 Atherosclerotic heart disease of native coronary artery without angina pectoris